=== PATIENT | male | born 1940 | race Caucasian/White ===

== ENCOUNTER 2023-11-28 23:20 | Inpatient (IN) | payer MEDICARE, SELFPAY ==
[2023-11-28 19:28] VITALS: BP 180/88
[2023-11-28 19:34] VITALS: BMI 18.2
[2023-11-28 20:00] VITALS: BP 152/67
--- NOTE | 2023-11-28 20:33 | ED.GENMED ---
History of Present Illness
General
Chief Complaint: Skin Problem
Source: patient
Exam Limitations: none
Time Seen by Provider: 11/28/23 20:01
Nursing documentation reviewed up to this point in time: agreed with
History of Present Illness
History of Present Illness:
83-year-old male with a past medical history of hyperlipidemia, CAD status post stents, AAA status postrepair, GERD/PUD who presents to the emergency room for evaluation of redness and swelling of the feet bilaterally much worse on the right.
Patient reports that initially his symptoms started 2 weeks ago�he says that he noticed a tiny pustule on the top of his right first toe. He says that it opened up and started draining after shower 1 night. He says that he dressed the area with a
brand-new Band-Aid but noticed over the next couple of days that it became increasingly red and swollen. Ultimately he says that it opened up and started draining once again and since then he has had progressively increasing redness, swelling and
pain in the right foot and toe�he reports marked pain with attempts at movement particularly in the first MTP joint. He says that 2 days ago he started to notice some slight redness and pain in the same area on the left foot. He says that it is
starting to affect his walking and balance and so he came to the emergency room for assessment. He has not had any trauma. He has not had any fevers or chills. He denies any similar symptoms in the past. Denies any history of gout.
Past History
Past History
ED Past Medical History: CAD, COPD, HTN and Hypercholesterolemia
ED Past Surgical History: Bowel resection and Other
Social History
Tobacco: Smoker
Alcohol: None
Personal: Single
Living: alone
Employment: Retired
Family History
Family History: Other (Noncontributory)
Review of Systems
Review of Systems
All Other Systems: ROS reviewed and negative except as documented in HPI and ROS
Constitutional: Denies fever or chills
Respiratory: Denies trouble breathing
Cardiac: Denies chest pain
ABD/GI: Denies abdominal pain or vomiting
Musculoskeletal: Reports joint pain; Denies neck pain or back pain
Skin: Reports other (Redness swelling and pain in the feet)
Neurological: Denies headache
Phy Exam
Physical Exam
Physical Exam:
General: Awake, alert, oriented x3; no acute distress
Head: Normocephalic, atraumatic
Eyes: Conjunctiva normal, sclera anicteric
Throat: Airway intact, handling secretions
Neck: Trachea midline, supple without meningismus
Lungs: Clear to auscultation bilaterally, no wheezing, rales, rhonchi; occasional cough
Heart: Regular rate and rhythm, holosystolic murmur
Neuro: Cranial nerves grossly intact, speech fluid
Skin: Patient has marked erythema on the dorsum of the right foot starting in the first toe and extending proximally towards the midfoot along the first and second metatarsals; he has an area of dryness/sloughing on the dorsum of the first toe but
no clear pustule or drainage/wound; area is warm, diffusely tender and indurated, no crepitus; on the right foot he has some very faint erythema essentially over the dorsum of the first MTP joint
Extremities: No edema in extremities, equal pulses in all extremities; skin findings as above on the feet; he has significant pain with attempts at passive range of motion in the first MTP joint bilaterally but much worse on the right
Scores
Heart Failure Risk
Heart Failure Risk Score: Not Applicable
Heart Score for Chest Pain Patients
STEMI patient?: Not applicable
Withdrawal Assessment of Alcohol
Withdrawal Assessment Completed?: Not applicable
Course
Orders/Labs/Results
Orders:
Orders
11/28/23 20:22
CR Foot - Left Min 3 Views Urgent
Comment:
Reason For Exam: left toe swelling, pain
CR Foot - Right Min 3 Views Urgent
Comment:
Reason For Exam: right toe swelling, pain
11/28/23 20:28
CRP [C-Reactive Protein] Urgent
Complete Blood Count/With Diff Urgent
Comprehensive Metabolic Panel Urgent
ESR [Erythrocyte Sed Rate] Urgent
Uric Acid Urgent
11/28/23 22:45
Blood Culture Urgent
PATI Source: Blood/Venous
Specimen Description:
Piperacillin/Tazo 3.375 Gram [Zosyn] 3.375 gram in 50 ml IV NOW
Vancomycin 1 Gram/200 ml [Vancocin] 1 gram in 200 ml IV NOW
11/28/23 22:46
PODIATRY CONSULT Urgent
Consulting Provider: Hal Felix
Was physician already notified: Yes
Wound Culture [Wound/Abscess/Other Culture] Urgent
PATI Source: Toe
Specimen Description:
11/28/23 23:15
Blood Culture Routine
PATI Source: Blood/Venous
Specimen Description:
Abnormal Lab Results
11/28/23
20:28
RBC 3.30 L 10^6/uL
(4.70-6.10)
Hgb 9.8 L g/dL
(13.0-18.0)
Hct 29.3 L %
(39.0-52.0)
Absolute Neuts (auto) 7.4 H 10^3/uL
(1.4-6.5)
Absolute Monos (auto) 0.8 H 10^3/uL
(0.1-0.6)
Neutrophils % 76.5 H %
(42.2-75.2)
Lymphocytes % 13.9 L %
(20.5-51.1)
ESR 52 H mm/hour
(0-20)
Potassium 5.5 H mmol/L
(3.5-5.1)
Chloride 108 H mmol/L
(98-107)
Carbon Dioxide 19 L mmol/L
(22-30)
BUN 54 H mg/dl
(9-20)
Creatinine 2.6 H mg/dL
(0.7-1.3)
Glucose 124 H mg/dl
(70-99)
Uric Acid 9.6 H mg/dl
(3.5-8.5)
C-Reactive Protein 60.70 H mg/L
(0.0-10.00)
11/28/23 20:28
11/28/23 20:28
Vital Signs
Initial and Last Documented VS:
Initial Vital Signs
Temp Pulse Resp BP Pulse Ox
36.7 C 86 18 180/88 98
11/28/23 19:28 11/28/23 19:28 11/28/23 19:28 11/28/23 19:28 11/28/23 19:28
Last Documented Vital Signs
Temp Pulse Resp BP Pulse Ox
36.7 C 75 18 152/67 98
11/28/23 19:28 11/28/23 21:01 11/28/23 21:01 11/28/23 20:00 11/28/23 21:01
Procedures
Incision/Drainage/Joint Aspiration
Right First Toe:
Preparation: cleaned with alcohol wipe
Type of procedure: aspiration
Nature of site: abscess
Description of abscess: less than 3cm
Loculations broken up: No
How much fluid was obtained?: small amount
Fluid description: purulent
Treatment: antibiotics started
MDM/Problems Addressed
Differential Diagnosis Includes:
Gout, cellulitis/septic arthritis
MDM/Problems Addressed:
83-year-old male presents for evaluation of atraumatic pain in both feet as described above. Pain mostly localized around the first MTP joint on the right side but also starting to have some slight symptoms on the left. He says initially his
symptoms started with a draining pustule on the right first toe and have progressed since then. Hypertensive but otherwise normal vitals. Notably afebrile. Physical exam as above. Certainly clinical picture raises question of gout especially
given bilateral nature of the symptoms however his story of progression from partial to diffuse erythema and the extent of the erythema on the right foot raises concern for acute infectious process. Will check labs including a CBC and CMP, ESR/CRP.
Check uric acid levels. Will check x-rays of the feet bilaterally. Certainly arthrocentesis would be helpful diagnostically but given the extent of erythema and concern for an infectious process I think arthrocentesis would be
contraindicated�hesitant to put a needle through cellulitic skin into the joint space. Will reassess after the above.
Labs reviewed: CBC shows stable anemia, CMP shows acute on chronic kidney injury with a creatinine of 2.6. Potassium marginally elevated at 5.5. Will provide some Lokelma. His uric acid was slightly elevated, inflammatory markers elevated. X-ray
of the foot was suggestive of possible gout but again initial story was concerning for an infectious etiology. Discussed case with podiatry regarding recommendations for arthrocentesis given extent of erythema around the joint. They recommended
proceeding with arthrocentesis for diagnostic purposes. Spoke with the patient and he is agreeable. Prior to procedure noted some slight fluctuance distal to the joint on the right toe and proceeded with bedside aspiration and expressed светлана pus.
Arthrocentesis aborted. Culture sent to lab. At this point suspect infection and concern for septic arthritis and cellulitis. Given spread of erythema to the opposite toe blood cultures were drawn and sent. Will cover with antibiotics. Will
admit to the hospitalist for continued management. Case discussed with hospitalist for admission.
Acute Exacerbation and/or Progression of Chronic Illness:
Acutely hypertensive with no signs or symptoms of hypertensive emergency�no indication for emergent antihypertensive therapy at present
Acute Exacerbation and/or Progression of Chronic Illness: HTN
*Radiology
Radiology exam reviewed: preliminary read by ED provider and radiology read reviewed
*Pulse Oximetry
Patient hypoxic: no
*Critical Care Note
Total Time (30-74mins, 75-104mins- exclusive of procedures): Not Applicable
Data Reviewed
Source: patient and records
Patient Management
Discussion with other providers: Hospitalist (Discussed with hospitalist) and Accessibility Lift Technician (Discussed with podiatry)
Escalation/DeEscalation of care consider admission/obs:
Admission indicated
ED Attending Note
-
Portions of this chart may have been created with voice recognition software.� Occasional wrong word or��sound alike� substitutions may have occurred due to the inherent limitations of voice recognition software.
Discharge Plan
Departure
Patient Disposition: Admit
Date of Disposition: 11/28/23
Time of Disposition: 22:51
Admit to doctor: Gabey
Presentation/result/management discussed w/ accepting MD/DO: Hospitalist
Discharge Problem:
Cellulitis, Septic arthritis
Prescriptions:
No Action
cyanocobalamin (vitamin B-12) 1,000 MCG tablet
1,000 mcg PO BID
isosorbide mononitrate 30 MG tablet extended release 24 hr
30 mg PO BID
simvastatin 80 MG tablet
80 mg PO QPM
folic acid 0.4 MG tablet
0.4 mg PO DAILY
captopril 12.5 MG tablet
12.5 mg PO BID
metoprolol tartrate 25 MG tablet
25 mg PO HS
aspirin [Adult Low Dose Aspirin] 81 MG tablet,delayed release (DR/EC)
81 mg PO DAILY
omega 4-lqf-osm-fish oil 1 EACH capsule
1 ea PO BID
Referrals:
Gabriella Colon DO [Family Provider] -
Interventions
Interventions:
*Risk Screen - Suicide Last Done: 11/28/23 19:28
*General Assessment Last Done: 11/28/23 19:28
*Neglect/Abuse Screening Last Done: 11/28/23 19:28
ED- Fall Risk Assessment Last Done: 11/28/23 19:37
ED-Skin Assessment Last Done: 11/28/23 19:36
Discharge Date and Time
Print Language: HEBREW
[2023-11-28 20:37] LABS: % Basophils 0.3 % (0-2); % Eosinophils 1.1 % (0-6); % Immature Granulocytes 0.4 % (0-0.5); % Lymphocytes 13.9 % (20.5-51.1); % Monocytes 7.8 % (1.7-9.3); % Neutrophils 76.5 % (42.2-75.2); Absolute Eosinophils 0.1 10^3/uL (0-0.7); Absolute Lymphocytes 1.3 10^3/uL (1.2-3.4); Absolute Monocytes 0.8 10^3/uL (0.1-0.6); Absolute Neutrophils 7.4 10^3/uL (1.4-6.5); Hematocrit 29.3 % (39.0-52.0); Hemoglobin 9.8 g/dL (13.0-18.0); Mean Corp Hgb Conc. 33.4 g/dL (33.0-37.0); Mean Corpuscular Hgb 29.7 pg (27.0-31.0); Mean Corpuscular Volume 88.8 fL (80.0-94.0); Nucleated Red Blood Cells % 0 % (-); Red Cell Dist. Width 13.8 % (11.5-14.5); White Blood Cell Count 9.7 10^3/uL (4.8-10.8)
[2023-11-28 20:44] LABS: Erythrocyte Sed Rate 52 mm/hour (0-20)
[2023-11-28 20:50] LABS: ALT (SGPT) < 10 U/L (0-50); AST (SGOT) 19 U/L (17-59); Albumin 4.2 g/dl (3.5-5.0); Alkaline Phosphatase 76 U/L (38-126); Blood Urea Nitrogen 54 mg/dl (9-20); Calcium 9.2 mg/dl (8.4-10.2); Carbon Dioxide 19 mmol/L (22-30); Chloride 108 mmol/L (98-107); Estimated Creatinine Clearance 16 ml/min; Glucose 124 mg/dl (70-99); Potassium 5.5 mmol/L (3.5-5.1); Sodium 137 mmol/L (135-145); Total Bilirubin 0.4 mg/dl (0.2-1.3); Total Protein 6.8 g/dl (6.3-8.2); eGFR 24.02
[2023-11-28 20:52] LABS: Uric Acid 9.6 mg/dl (3.5-8.5)
[2023-11-28 22:53] VITALS: BP 160/71
[2023-11-28] MEDS: ZOSYN 50 IV (22:59)
[2023-11-28] MEDS: VANCOCIN 200 IV (23:05)
--- NOTE | 2023-11-28 23:14 | HPS.HSE ---
Family Physician
-
Family Physician: Peter Colon DO
Chief Complaint
-
joint pain and redness
History of Present Illness
83-year-old male past medical history of coronary artery disease status post stents, hypertension, GERD, peptic ulcer disease, CKD, abdominal aortic aneurysm status postrepair in 2008, hyperlipidemia presenting for redness and swelling of the feet
bilaterally much worse on the right. Symptoms started 2 weeks ago when he initially noticed a tiny pustule on the top of his right first toe. It opened up and started draining afterwards. He dressed the area with the brand-new Band-Aid but over
the next couple of days it became increasingly red and swollen. It opened up again and started draining again with progressively increased redness/swelling and pain in the right foot and toe particularly first MTP joint, particularly with movement.
2 days ago he noticed some redness and pain in the same area on the left foot. He denies any trauma. He denies any fevers or chills. He denies history of gout or similar symptoms in the past.
He smokes half a pack of cigarettes per day. He denies alcohol.
Medical History
Past Medical History
Past Medical History: Reports Other (coronary artery disease status post stents, hypertension, GERD, peptic ulcer disease, CKD, abdominal aortic aneurysm status postrepair in 2008, hyperlipidemia)
Past Surgical History: Reports None
Social History
Tobacco: Smoker
Alcohol: None
Drug: None
Family History
Family History: Not pertinent
Allergies / Home Medications
Allergies reflects when Allergies were last updated in [employer].
Home Medications with original date entered in [employer]
Allergy/Medication List:
Allergies
Allergy/AdvReac Type Severity Reaction Status Date / Time
shellfish derived Allergy Hives Verified 11/28/23 19:38
Home Medications
cyanocobalamin (vitamin B-12) 1,000 mcg tablet 1,000 mcg PO BID 06/06/14
captopril 12.5 mg tablet 12.5 mg PO BID 06/09/14
folic acid 400 mcg tablet 0.4 mg PO DAILY 06/09/14
metoprolol tartrate 25 mg tablet 25 mg PO HS 06/09/14
simvastatin 80 mg tablet 80 mg PO QPM 06/09/14
aspirin 81 mg tablet,delayed release (Adult Low Dose Aspirin) 81 mg PO DAILY 09/29/15
omega 6-awg-pps-fish oil 250 mg-500 mg-1,000 mg capsule 1 ea PO BID 12/11/15
isosorbide dinitrate 30 mg tablet 30 mg PO BID 11/28/23
Review of Systems
-
History Source: Patient
A 12 point ROS was completed and negative except as noted: Yes
Constitutional: Reports No Symptoms
EENT: Reports No Symptoms
Respiratory: Reports No Symptoms
Cardiac: Reports No Symptoms
Abdomen/GI: Reports No Symptoms
: Reports No Symptoms
Musculoskeletal: Reports No Symptoms
Skin: Reports See HPI
Neurological: Reports No Symptoms
Endocrine: Reports No Symptoms
Hematologic/Lymphatic: Reports No Symptoms
Psych: Reports No Symptoms
Physical Exam
Vital Signs
Vital Signs
Temp Pulse Resp BP Pulse Ox
98.2 F 78 18 152/67 98
11/28/23 22:59 11/28/23 22:59 11/28/23 22:59 11/28/23 20:00 11/28/23 22:59
Physical Exam
General: Well Developed, Well Nourished and No Apparent Distress
HEENT: NormoCephalic, Moist mucous membranes and Atraumatic
Respiratory: Clear
Cardiac: S1/S2 and Regular Rhythm; No Murmur or Rub
GI: Soft, Non Tender, Non Distended and Normal Bowel Sounds; No Organomegaly
Rectal: Deferred by Provider
Musculoskeletal: No Clubbing, No Cyanosis, No Edema and Other (right first big toe ulceration with surrounding erthema, erythema and redness of first MTP, )
Skin: No Rash
Neuro: Nonfocal/grossly intact
Laboratory Results
-
11/28/23 20:28
11/28/23 20:28
Laboratory Results
Total Bilirubin 0.4 mg/dl (0.2-1.3) 11/28/23 20:28
AST 19 U/L (17-59) 11/28/23 20:28
ALT < 10 U/L (0-50) 11/28/23 20:28
Alkaline Phosphatase 76 U/L (38-126) 11/28/23 20:28
Data Reviewed
-
Lab Data: Labs Reviewed by me
Old Records: Reviewed
Impression/Plan
-
IMPRESSION:
PLAN:
# Cellulitis right foot/likely most likely gout of first MTP joint versus septic arthritis
# Likely Developing gout of left first MTP
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
-Area of puncture on distal toe was draining pus so attempt at aspiration of joint was aborted
-Uric acid of 9.6
-Wound culture, blood cultures sent
-Vancomycin/Zosyn
-Podiatry consulted
#Chronic kidney disease
# Hyperkalemia
-Creatinine of 2.6 from 2 however was 2 years ago so likely progression of CKD
-Hold captopril
Coronary artery disease status post stents
-Continue aspirin
-Continue isosorbide dinitrate
-Continue statin
Abdominal aortic aneurysm status post repair in 2008
Essential hypertension
-Continue metoprolol
GERD/peptic ulcer disease
Chronic anemia
Active smoker
-Nicotine patch
Full code
DVT prophylaxis�SCDs
Regular diet
[2023-11-28 23:20] VITALS: BMI 18.1
[2023-11-29] MEDS: LOKELMA 10 GRAM PO
[2023-11-29] MEDS: NSS 500 IV
[2023-11-29] MEDS: ZOSYN 50 IV ×2 (05:01→09:03)
[2023-11-29 05:20] LABS: % Basophils 0.3 % (0-2); % Eosinophils 1.9 % (0-6); % Immature Granulocytes 0.2 % (0-0.5); % Lymphocytes 17.5 % (20.5-51.1); % Monocytes 7.7 % (1.7-9.3); % Neutrophils 72.4 % (42.2-75.2); Absolute Eosinophils 0.2 10^3/uL (0-0.7); Absolute Lymphocytes 1.5 10^3/uL (1.2-3.4); Absolute Monocytes 0.7 10^3/uL (0.1-0.6); Absolute Neutrophils 6.4 10^3/uL (1.4-6.5); Hematocrit 26.3 % (39.0-52.0); Hemoglobin 8.8 g/dL (13.0-18.0); Mean Corp Hgb Conc. 33.5 g/dL (33.0-37.0); Mean Corpuscular Hgb 29.4 pg (27.0-31.0); Nucleated Red Blood Cells % 0 % (-); Red Blood Cell Count 2.99 10^6/uL (4.70-6.10); Red Cell Dist. Width 13.7 % (11.5-14.5); White Blood Cell Count 8.8 10^3/uL (4.8-10.8)
[2023-11-29 05:46] LABS: ALT (SGPT) < 10 U/L (0-50); AST (SGOT) 20 U/L (17-59); Albumin 3.5 g/dl (3.5-5.0); Alkaline Phosphatase 53 U/L (38-126); Blood Urea Nitrogen 48 mg/dl (9-20); Calcium 8.5 mg/dl (8.4-10.2); Carbon Dioxide 19 mmol/L (22-30); Chloride 110 mmol/L (98-107); Estimated Creatinine Clearance 17 ml/min; Glucose 88 mg/dl (70-99); Potassium 5.1 mmol/L (3.5-5.1); Sodium 135 mmol/L (135-145); Total Bilirubin 0.6 mg/dl (0.2-1.3); eGFR 26.44
[2023-11-29 07:00] VITALS: BP 115/51
[2023-11-29] MEDS: FOLVITE 0.4 MG PO (09:01)
[2023-11-29] MEDS: ASPIR LOW (ENTERIC COATED) 81 MG PO (09:01)
[2023-11-29] MEDS: SORBITRATE 30 MG PO ×2 (09:02→17:29)
[2023-11-29] MEDS: VITAMIN B-12 1000 MCG PO ×2 (09:03→21:20)
--- NOTE | 2023-11-29 09:15 | PHA.VAN.IN ---
Assessment
- Assessment
Renal Function: Unknown baseline
Concomitant Antimicrobials: piperacillin/tazobactam
Plan
- Plan
Initial / Loading Dose: 1000mg 11/27 23:05
Maintenance Regimen: dosing by level - give additional 500mg x1 today
Monitoring: random 11/29 06
Pharmacokinetics Vancomycin I
- -
Patient Age: 83
Patient Sex: Male
Vancomycin Day #: 1
Indication: [facility]
Requesting Provider: Dr. Coates
Pertinent Antimicrobial Allergies:
no pertinent antibiotic allergies
Height / Weight:
Height 5 ft 5 in
Actual Weight 49.3 kg
IBW in k.5
Pertinent Past Medical History: BMI ~18, CKD
- Vital Signs / Lab Results
Temp Pulse Resp BP Pulse Ox
98.2 F 79 14 115/51 98
11/29/23 07:00 11/29/23 07:00 11/29/23 07:00 11/29/23 07:00 11/29/23 07:00
Lab Results - Hematology
11/28/23 11/29/23
20:28 05:10
WBC 9.7 8.8
Lab Results - Chemistry
11/28/23 11/29/23
20:28 05:10
BUN 54 H 48 H
Creatinine 2.6 H 2.4 H
Estimated Creat Clear 16 17
Albumin 4.2 3.5
[2023-11-29 11:13] VITALS: BMI 18.2
--- NOTE | 2023-11-29 11:13 | PTCARENOTE ---
Pt received from ED via wheelchair. Pt stood and pivot to bed with stand by assistance. Pt oriented to staff and environment. Call light and personal items within reach.
[2023-11-29 11:21] VITALS: BP 130/67
[2023-11-29] MEDS: VANCOCIN HCL 500 MG 100 IV (11:23)
[2023-11-29 11:25] VITALS: BP 106/58
[2023-11-29 11:27] VITALS: BP 108/66
--- NOTE | 2023-11-29 12:34 | W.CS.POD ---
Consult Summary - Podiatry
-
83-year-old male past medical history of coronary artery disease status post stents, hypertension, GERD, peptic ulcer disease, CKD, abdominal aortic aneurysm status postrepair in 2008, hyperlipidemia presenting for redness and swelling of the feet
bilaterally much worse on the right. Symptoms started 2 weeks ago when he initially noticed a tiny pustule on the top of his right first toe. HE is in no acute distress, no chest pain, no SOB. No h/o Diabetes. No h/o gout . Improved Rt hallux
pustule drainage. No fever, chills.
Exam ; Intact pedal pulses both DP and PT
Intact gross and protective sensation
Rt foot 1st MPJ erythematous, edema, tender, small fluctuant area at the Rt hallux IPJ noted, no open ulceration or abscess noted.
LT 1st MPJ also erythematous, no red streaking up the foot.
WBC count is WNL.
Will order B/l foot xrays
A/P; Rt foot acute gout with superimposed cellulitis
LT foot acute gouty flare up.
At bedside, drained Rt hallux IPJ and send the aspirate for crystal and aerobic and anaerobic culture
Probably need IV steroids for acute gout control
Podiatry willfollow
--- NOTE | 2023-11-29 14:06 | W.PN.HOSP.TC ---
Today's Communication/Plan
-
Prednisone
Oral antibiotics
PT/OT
Assessment / Plan
Assessment / Plan
Gen-AAOx3, NAD
HEENT-NC, AT, anicteric, clear oral mm
Neck-supple
CV-reg, no M, +S1/S2
Lungs-clear B/L
Abd-soft, NT, ND
Ext-no edema
Musculoskeletal-no cyanosis, clubbing
Skin-warm and dry
Neuro-grossly non-focal
Psych-calm, cooperative
Acute gout flare -bilateral first toes. Start prednisone. Fluid obtained by podiatry, crystal analysis positive for monosodium urate crystals. Serum uric acid elevated, 9.6.
Right first toe cellulitis -will change to oral antibiotics.
CKD 4 -unknown baseline creatinine. Monitor for now.
CAD -s/p stents.
Essential hypertension
Hyperlipidemia
PUD
GERD
AAA -repaired in 2008.
Hyperkalemia -improved.
Chronic normocytic anemia -likely due to chronic kidney disease. Hemoglobin near baseline.
Full code
PT/OT
Anticipated Discharge: Within 24 hours
Subjective/Interval History
-
Date of Service: November 29, 2023
Patient seen and examined. Having right great toe pain.
Objective Data
-
Labs:
Laboratory Results
11/29/23
05:10
WBC 8.8
Hgb 8.8 L
Hct 26.3 L
Plt Count
Sodium 135
Potassium 5.1
Chloride 110 H
Carbon Dioxide 19 L
BUN 48 H
Creatinine 2.4 H
Glucose 88
Calcium 8.5
Total Bilirubin 0.6
AST 20
ALT < 10
Alkaline Phosphatase 53
Vital Signs:
Vital Signs
Temp Pulse Resp BP Pulse Ox
97.4 F 91 16 108/66 97
11/29/23 11:21 11/29/23 11:21 11/29/23 11:21 11/29/23 11:27 11/29/23 11:21
Review of Systems
-
History Source: Patient
All other systems: Reviewed and negative
[2023-11-29] MEDS: DELTASONE 40 MG PO (15:21)
[2023-11-29 15:35] VITALS: BP 122/66
[2023-11-29] MEDS: LIPITOR 40 MG PO (17:29)
[2023-11-29] MEDS: AUGMENTIN 500 MG/125 MG 1 TABLET PO (21:21)
[2023-11-29] MEDS: LOPRESSOR 25 MG PO (21:21)
[2023-11-29 23:00] VITALS: BP 98/61
[2023-11-30 07:32] VITALS: BP 130/64
[2023-11-30] MEDS: SORBITRATE 30 MG PO (08:09)
[2023-11-30] MEDS: ASPIR LOW (ENTERIC COATED) 81 MG PO (08:09)
[2023-11-30] MEDS: VITAMIN B-12 1000 MCG PO (08:09)
[2023-11-30] MEDS: DELTASONE 40 MG PO (08:09)
[2023-11-30] MEDS: AUGMENTIN 500 MG/125 MG 1 TABLET PO (08:15)
[2023-11-30] MEDS: FOLVITE 0.4 MG PO (08:16)
[2023-11-30 10:57] VITALS: BP 126/72; PULSE 72; O2SAT 98
--- NOTE | 2023-11-30 11:30 | W.PN.HOSP.TC ---
Today's Communication/Plan
-
Discharge
Assessment / Plan
Assessment / Plan
Gen-AAOx3, NAD
HEENT-NC, AT, anicteric, clear oral mm
Neck-supple
CV-reg, no M, +S1/S2
Lungs-clear B/L
Abd-soft, NT, ND
Ext-no edema
Musculoskeletal-no cyanosis, clubbing
Skin-warm and dry
Neuro-grossly non-focal
Psych-calm, cooperative
Acute gout flare -bilateral first toes. Improving on prednisone, pain much better. Improved range of motion. Fluid obtained by podiatry, crystal analysis positive for monosodium urate crystals. Serum uric acid elevated, 9.6.
Right first toe cellulitis -improving on oral antibiotics. Wound culture shows Staph aureus. I spoke with microbiology lab, appears to not be MRSA so far.
CKD 4 -unknown baseline creatinine. Monitor for now.
CAD -s/p stents.
Essential hypertension
Hyperlipidemia
PUD
GERD
AAA -repaired in 2008.
Hyperkalemia -improved.
Chronic normocytic anemia -likely due to chronic kidney disease. Hemoglobin near baseline.
Full code
PT/OT
Dispo -medically stable for discharge. Close outpatient follow-up.
32 minutes spent in discharge process.
Anticipated Discharge: Today
Subjective/Interval History
-
Date of Service: November 30, 2023
Patient seen and examined. Eager to go home. Feeling better. No complaints.
Objective Data
-
Vital Signs:
Vital Signs
Temp Pulse Resp BP Pulse Ox
97.6 F 55 17 130/64 98
11/30/23 07:32 11/30/23 07:32 11/30/23 07:32 11/30/23 07:32 11/30/23 07:32
I&O
11/29/23 11/30/23 12/01/23
06:59 06:59 06:59
Intake Total 720 / 720
Balance 720 / 720
Review of Systems
-
History Source: Patient
All other systems: Reviewed and negative
[2023-11-30 11:33] VITALS: BP 126/72; PULSE 76; O2SAT 98
--- NOTE | 2023-11-30 11:38 | W.DS.TRANS ---
DC Summary - Pediatrician Active Practice
-
Discharge Instructions:
Discharge Diagnosis/Procedures Gout flare, right first toe cellulitis, chronic
kidney disease
Diet Regular
Activity As tolerated
Driving Restrictions As prior to admission
Bathing Restrictions None
Blood Work BMP in 1 week with your primary care doctor
Instructions:
Stand-Alone Forms:
Changes to Home Medications: No
Discharge Medications:
DC Medications w/original date entered in [employer]
cyanocobalamin (vitamin B-12) 1,000 mcg tablet 1,000 mcg PO BID Supplement 06/06/14
captopril 12.5 mg tablet 12.5 mg PO BID Blood Pressure 06/09/14
folic acid 400 mcg tablet 0.4 mg PO DAILY Supplement 06/09/14
metoprolol tartrate 25 mg tablet 25 mg PO HS Blood Pressure 06/09/14
simvastatin 80 mg tablet 80 mg PO QPM High Cholesterol 06/09/14
aspirin 81 mg tablet,delayed release (Adult Low Dose Aspirin) 81 mg PO DAILY Blood Clot Prevention/Tx 09/29/15
omega 1-wth-zpg-fish oil 250 mg-500 mg-1,000 mg capsule 1 ea PO BID Supplement 12/11/15
isosorbide dinitrate 30 mg tablet 30 mg PO BID Blood Pressure 11/28/23
amoxicillin 500 mg-potassium clavulanate 125 mg tablet 1 tab PO Q12 #12 tabs 11/30/23
prednisone 20 mg tablet 40 mg (2 x 20 mg) PO DAILY #14 tabs 11/30/23
Home Medication Changes
Pending Results: No
--- NOTE | 2023-11-30 12:09 | W.PN.POD ---
Today's Communication
Today's Communication
Patient is stable by podiatry to D/C
Assessment / Plan
-
Acute gout attack with superimposed cellultis Rt foot.
LT foot acute gout attack
Plan ; Confirmed gout by aspirate Rt1st MPJ- MSU crystals identified.
Agree with MEdrol dose pk
HE will f/u in my office in 1 to 2 wks
Subjective
Chief Complaint
B/l feet with redness and pain
Subjective
Patient seen at bedside, doing well, redness,pain and swelling improved very well.
Objective
Temp Pulse Resp BP Pulse Ox
97.6 F 55 17 130/64 98
11/30/23 07:32 11/30/23 07:32 11/30/23 07:32 11/30/23 07:32 11/30/23 07:32
11/29/23 05:10
11/29/23 05:10
Vital Signs and Lab results were reviewed.
Intact vascular status b/l feet
well improved erythema and edema to Rt foot and resolved erythema to LT foot as well and resolved pain b/l feet.
Rt hallux resolved drainage and healed skin lesion /pustule.
Visible tophaceous deposits under the skin Rt medial foot , no open ulcerations, no draining ulcerations noted
[2023-11-30 12:56] VITALS: BP 116/74
--- NOTE | 2023-11-30 15:19 | CM ---
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
patient is adm with bl first toe gout on po prednisone and po abx.he is stable for dc home with no needs.family to transport home.
== END 2023-11-30 13:13 | disposition home or self-care (01) | DRG 603 ==
LOC: 3 WEST ACU 23:20
PROVIDERS: ADMITTING PHYSICIAN Hospitalist; ATTENDING PHYSICIAN Hospitalist; EMERGENCY PHYSICIAN Emergency Medicine; FAMILY PHYSICIAN Student in an Organized Health Care Education/Training Program; OTHER PHYSICIAN Podiatrist Foot & Ankle Surgery
PROC: 0Y9M3ZX Drainage of Right Foot, Percutaneous Approach, Diagnostic (ICD-10-PCS; 2023-11-29)
DX: L03.031 Cellulitis of right toe (principal); N18.4 Chronic kidney disease, stage 4 (severe); M10.9 Gout, unspecified; R22.43 Localized swelling, mass and lump, lower limb, bilateral; I25.10 Atherosclerotic heart disease of native coronary artery without angina pectoris; E78.5 Hyperlipidemia, unspecified; K21.9 Gastro-esophageal reflux disease without esophagitis; E78.00 Pure hypercholesterolemia, unspecified; E87.5 Hyperkalemia; D53.9 Nutritional anemia, unspecified; J44.9 Chronic obstructive pulmonary disease, unspecified; F17.210 Nicotine dependence, cigarettes, uncomplicated; I12.9 Hypertensive chronic kidney disease with stage 1 through stage 4 chronic kidney disease, or unspecified chronic kidney disease; Z95.5 Presence of coronary angioplasty implant and graft; Z87.11 Personal history of peptic ulcer disease; Z91.013 Allergy to seafood; Z79.82 Long term (current) use of aspirin
CPT/HCPCS: 73630; 80053; 84550; 85025; 85652; 86140; 87040; 87070; 87075; 87147; 87186; 87205; 89060; 97116; 97162; 97166; 99406

== ENCOUNTER → 2023-12-06 17:17 | Outpatient (REF) | payer MEDICARE, SELFPAY ==
[2023-12-06 17:35] LABS: Blood Urea Nitrogen 79 mg/dl (9-20); Calcium 9.5 mg/dl (8.4-10.2); Carbon Dioxide 23 mmol/L (22-30); Chloride 106 mmol/L (98-107); Glucose 91 mg/dl (70-99); Potassium 5.8 mmol/L (3.5-5.1); Sodium 138 mmol/L (135-145); eGFR 27.83
== END ==
LOC: CLAB 17:17
PROVIDERS: ATTENDING PHYSICIAN Student in an Organized Health Care Education/Training Program
DX: N18.4 Chronic kidney disease, stage 4 (severe) (principal); M10.071 Idiopathic gout, right ankle and foot
CPT/HCPCS: 36415; 80048

== ENCOUNTER → 2024-03-08 13:03 | Outpatient (REF) | payer MEDICARE, SELFPAY ==
[2024-03-08 16:16] LABS: Blood Urea Nitrogen 41 mg/dl (9-20)
== END ==
LOC: HWLAB 13:03
PROVIDERS: ATTENDING PHYSICIAN Otolaryngology
DX: R07.0 Pain in throat (principal)
CPT/HCPCS: 36415; 82565; 84520

== ENCOUNTER → 2024-03-11 13:24 | Outpatient (REF) | payer MEDICARE, SELFPAY | LOC: HWRAD 13:24 | PROVIDERS: ATTENDING PHYSICIAN Otolaryngology; FAMILY PHYSICIAN Family Medicine | DX: R07.0 Pain in throat (principal) | CPT/HCPCS: 70490 ==

== ENCOUNTER → 2024-04-17 12:42 | Outpatient (REF) | payer MEDICARE, SELFPAY | LOC: HWRCS 12:42 | PROVIDERS: ATTENDING PHYSICIAN Internal Medicine Cardiovascular Disease; FAMILY PHYSICIAN Family Medicine | DX: R01.1 Cardiac murmur, unspecified (principal) | CPT/HCPCS: 93306 ==

== ENCOUNTER → 2024-05-24 10:07 | Outpatient (REF) | payer MEDICARE, SELFPAY ==
[2024-05-24 16:31] LABS: ALT (SGPT) < 10 U/L (0-50); AST (SGOT) 20 U/L (17-59); Albumin 3.7 g/dl (3.5-5.0); Alkaline Phosphatase 62 U/L (38-126); Blood Urea Nitrogen 45 mg/dl (9-20); Calcium 8.9 mg/dl (8.4-10.2); Carbon Dioxide 23 mmol/L (22-30); Chloride 106 mmol/L (98-107); Glucose 111 mg/dl (70-99); Sodium 139 mmol/L (135-145); Total Bilirubin 0.4 mg/dl (0.2-1.3); eGFR 27.66
[2024-05-24 16:36] LABS: Potassium 5.7 mmol/L (3.5-5.1)
== END ==
LOC: REG 10:07
PROVIDERS: ATTENDING PHYSICIAN Family Medicine
DX: N18.4 Chronic kidney disease, stage 4 (severe) (principal)
CPT/HCPCS: 36415; 80053

== ENCOUNTER → 2024-05-28 18:28 | Outpatient (REF) | payer MEDICARE, SELFPAY | LOC: MRI 18:28 | PROVIDERS: FAMILY PHYSICIAN Family Medicine | DX: J39.2 Other diseases of pharynx (principal) | CPT/HCPCS: 70543; A9575 ==